=== PATIENT | female | born 1960 | race African-American/Black ===

== ENCOUNTER 2024-09-07 00:05 | Emergency (ER) | payer MEDICAID, OTHER ==
[~2024-09-07] VITALS: Ht 167.6 cm; Wt 66.0 kg
[2024-09-07 00:17] VITALS: TEMP 37; O2SAT 99
[2024-09-07] MEDS: KETOROLAC 15MG/ML VIAL IM ONE (02:00)
[2024-09-07 05:15] LABS: BASOPHILS % 0.8 % (0.0-2.0); EOSINOPHILS % 2.3 % (0.0-5.0); HEMATOCRIT. 38.5 % (36.0-48.0); HEMOGLOBIN. 12.8 g/dL (12.0-16.0); MEAN CORPUSCULAR HGB CONC 33.1 g/dL (31.0-37.0); MEAN CORPUSCULAR VOLUME 99.6 fL (81.0-99.0); MEAN PLATELET VOLUME 8.4 fl (7.4-10.4); MONOCYTES % 14.9 % (2.0-8.0); PLATELET 213 x1000/uL (130-400); RED BLOOD CELL COUNT 3.87 mill/uL (4.2-5.4); RED CELL DISTRIBUTION WIDTH 13.9 % (11.6-14.6); WHITE BLOOD COUNT 7.4 x1000/uL (4.5-11.0)
[2024-09-07 05:29] LABS: POTASSIUM 4.1 mEq/L (3.5-5.1)
[2024-09-07 05:30] LABS: CALCIUM 8.8 mg/dL (8.7-10.4)
[2024-09-07 05:35] LABS: CREATININE 1.2 mg/dL (0.6-1.0)
[2024-09-07 06:32] LABS: INR 0.9; PROTHROMBIN TIME 10.1 sec (9.6-11.0)
[2024-09-07] MEDS: HYDROCODONE/ACETAMINOPHEN 5/325MG TABLET PO ONE (07:59)
[2024-09-07 08:00] VITALS: BP 126/85; PULSE 75; RESP 12; O2SAT 97
[2024-09-07 09:21] LABS: ERYTHROCYTE SEDIMENTATION RATE 14 mm/hr (0-30)
== END 2024-09-07 08:38 | disposition short-term general hospital (02) ==
LOC: ER 00:15 → EDBEDREQTM 06:29 → EDBEDREQ 06:29 → CANBEDREQ 08:11 → ER 08:38
DX: S09.90XA Unspecified injury of head, initial encounter (principal); M25.562 Pain in left knee; I10 Essential (primary) hypertension; J44.9 Chronic obstructive pulmonary disease, unspecified; Z88.0 Allergy status to penicillin; Z88.6 Allergy status to analgesic agent; W19.XXXA Unspecified fall, initial encounter; Y93.89 Activity, other specified; Y92.89 Other specified places as the place of occurrence of the external cause; Y99.8 Other external cause status
CPT/HCPCS: 99285; 70450; 80048; 85025; 85610; 85651; 36415; 73562; 96372; J1885

== ENCOUNTER 2025-05-02 18:49 | Inpatient (IN) | payer MEDICAID ==
[~2025-05-02] VITALS: Ht 149.9 cm; Wt 46.7 kg
[~2025-05-02 18:49] MED LIST: ALBU18HF2 IH; AZIT250T MT; COR3 PO; FAMO20TA8 PO; IBUP-1455 PO
[2025-05-02] MEDS ORDERED: ONDANSETRON HCL 4MG/2ML INJ IV ONE (19:00)
[2025-05-02] MEDS ORDERED: HALOPERIDOL LACTATE 5MG/ML VIAL IM ONE (19:00)
[2025-05-02 19:39] LABS: BG DEOXYHEMOGLOBIN 58.2 % (0.0-5.0)
[2025-05-02 19:50] LABS: BASOPHILS % 0.5 % (0.0-2.0); EOSINOPHILS % 2.5 % (0.0-5.0); HEMATOCRIT. 49.3 % (36.0-48.0); HEMOGLOBIN. 16.0 g/dL (12.0-16.0); LYMPHOCYTES % 39.1 % (20.0-50.0); MEAN PLATELET VOLUME 9.1 fl (7.4-10.4); MONOCYTES % 9.7 % (2.0-8.0); NEUTROPHILS % 48.2 % (40.0-76.0); PLATELET 227 x1000/uL (130-400); RED BLOOD CELL COUNT 4.78 mill/uL (4.2-5.4); RED CELL DISTRIBUTION WIDTH 14.2 % (11.6-14.6)
[2025-05-02] MEDS: SODIUM CHLORIDE 0.9% 1,000 ML IV ONE (19:55)
[2025-05-02 20:05] LABS: CREATININE 1.0 mg/dL (0.6-1.0); UREA NITROGEN BLOOD 13 mg/dL (9-23)
[2025-05-02 20:06] LABS: TROPONIN I HIGH SENSITIVITY 28 ng/L (3.0-34)
[2025-05-02 20:07] LABS: ASPARTATE AMINOTRANSFERASE 122 IU/L (<34); BILIRUBIN DIRECT 0.1 mg/dL (<=3.0)
[2025-05-02 20:08] LABS: BILIRUBIN TOTAL 0.5 mg/dL (0.1-1.0); PROTEIN TOTAL 6.9 g/dL (6.0-8.3)
[2025-05-02 20:09] LABS: HCG SCREEN NEGATIVE
[2025-05-02] MEDS: ACETAMINOPHEN 325MG TABLET PO ONE (20:26)
[2025-05-02] MEDS ORDERED: ACETAMINOPHEN 325MG TABLET PO PRN (22:30)
[2025-05-02] MEDS ORDERED: IPRATROPIUM/ALBUTEROL 0.5-3(2.5)MG/3ML NEB HHN PRN (22:30)
[2025-05-02] MEDS ORDERED: CLONIDINE 0.1MG TABLET PO PRN (22:30)
[2025-05-02] MEDS ORDERED: DOCUSATE SODIUM 100MG CAPSULE PO PRN (22:30)
[2025-05-02] MEDS ORDERED: ONDANSETRON HCL 4MG/2ML INJ IV PRN (22:30)
[2025-05-02 23:00] VITALS: BP 121/80; PULSE 94; RESP 18; TEMP 36.418
[2025-05-03] VITALS: BP 121/80; PULSE 86; RESP 18; TEMP 36.4; O2SAT 95
[2025-05-03 04:00] VITALS: BP 136/84; PULSE 71; RESP 18; TEMP 36.3; O2SAT 95
[2025-05-03] MEDS: ACETAMINOPHEN 325MG TABLET PO PRN (04:40)
[2025-05-03 08:00] VITALS: BP 158/93; PULSE 75; RESP 17; TEMP 36.6; O2SAT 96
[2025-05-03] MEDS: PANTOPRAZOLE SODIUM 40 MG/VIAL IV SCH (09:19)
[2025-05-03 09:44] LABS: BASOPHILS % 0.7 % (0.0-2.0); EOSINOPHILS % 5.3 % (0.0-5.0); HEMATOCRIT. 43.2 % (36.0-48.0); HEMOGLOBIN. 14.2 g/dL (12.0-16.0); LYMPHOCYTES % 36.8 % (20.0-50.0); MEAN PLATELET VOLUME 9.2 fl (7.4-10.4); MONOCYTES % 9.4 % (2.0-8.0); NEUTROPHILS % 47.8 % (40.0-76.0); PLATELET 204 x1000/uL (130-400); RED BLOOD CELL COUNT 4.26 mill/uL (4.2-5.4); RED CELL DISTRIBUTION WIDTH 13.5 % (11.6-14.6)
[2025-05-03] MEDS: ENOXAPARIN 40MG/0.4ML SYR SUBCUT SCH (09:45)
[2025-05-03 09:58] LABS: TROPONIN I HIGH SENSITIVITY 41 ng/L (3.0-34)
[2025-05-03 10:09] LABS: CREATININE 1.0 mg/dL (0.6-1.0); UREA NITROGEN BLOOD 24 mg/dL (9-23)
[2025-05-03 10:10] LABS: CREATINE KINASE MB FRACTION 2.0 ng/mL (0.5-3.6)
[2025-05-03] MEDS ORDERED: MORPHINE SULFATE 2 MG/ML INJ (NOT FOR IM USE) IV PRN (10:15)
[2025-05-03] MEDS: MORPHINE SULFATE 4 MG/ML INJ (FOR IV/IM USE) IV PRN (11:44)
[2025-05-03 11:59] LABS: HEPATITIS C AB NON REACTIVE (Neg) (Negative)
[2025-05-03 12:00] VITALS: BP 136/90; PULSE 77; RESP 16; TEMP 36.4; O2SAT 97
[2025-05-03] MEDS ORDERED: NALOXONE HCL 0.4MG/ML VIAL IV PRN (13:30)
[2025-05-03 16:00] VITALS: BP 148/97; PULSE 73; RESP 17; TEMP 36.4; O2SAT 96
[2025-05-03 17:16] LABS: *AMPHETAMINES SCREEN URINE NEGATIVE (NEGATIVE); *BARBITURATES SCREEN URINE NEGATIVE (NEGATIVE); *BENZODIAZEPINES SCREEN URINE NEGATIVE (NEGATIVE); *COCAINE SCREEN URINE PRESUMPTIVE POSITIVE (NEGATIVE); CANNABINOID URINE SCREEN NEGATIVE (NEGATIVE); ECSTASY MDMA SCREEN URINE NEGATIVE (NEGATIVE); METHADONE URINE SCREEN NEGATIVE (NEGATIVE); OPIATES URINE SCREEN PRESUMPTIVE POSITIVE (NEGATIVE); PHENCYCLIDINE URINE SCREEN NEGATIVE (NEGATIVE)
[2025-05-03 17:28] LABS: CLARITY URINE CLEAR (CLEAR); COLOR URINE YELLOW (YELLOW); GLUCOSE URINE NEGATIVE (NEGATIVE); KETONES URINE NEGATIVE (NEGATIVE); LEUKOCYTE ESTERASE URINE NEGATIVE (NEGATIVE); NITRITE URINE NEGATIVE (NEGATIVE); OCCULT BLOOD URINE NEGATIVE (NEGATIVE); PH URINE 5.5 (4.5-8.0); PROTEIN URINE NEGATIVE (NEGATIVE); SPECIFIC GRAVITY URINE 1.019 (1.005-1.030); UROBILINOGEN URINE 0.2 E.U./dL (0.2-1.0)
[2025-05-03] MEDS: AZITHROMYCIN 500MG/250ML 250 ML IV SCH (17:41)
[2025-05-03] MEDS: METHYLPREDNISOLONE SOD SUCC 40MG/ML (ACT-O-VIAL) IV SCH (17:42)
[2025-05-03] MEDS: AMLODIPINE 5MG TABLET PO SCH (17:52)
[2025-05-03 19:22] LABS: CREATINE KINASE MB FRACTION 2.2 ng/mL (0.5-3.6)
[2025-05-03 19:23] LABS: TROPONIN I HIGH SENSITIVITY 25 ng/L (3.0-34)
[2025-05-03 19:26] LABS: T4 FREE 0.97 ng/dL (0.89-1.76)
[2025-05-03 19:28] LABS: FOLIC ACID (FOLATE) SERUM 12.08 ng/mL (>5.38); VITAMIN B12 SERUM 505 pg/mL (211-911)
[2025-05-03 20:00] VITALS: BP 142/91; PULSE 66; RESP 19; TEMP 36.6; O2SAT 95
[2025-05-03] MEDS: GUAIFENESIN 600MG ER TABLET PO SCH (21:33)
[2025-05-04] VITALS (9 sets, daily range): BP systolic 97–139; BP diastolic 59–106; PULSE 56–83; RESP 17–20; TEMP 36.3–36.6; O2SAT 88–99
[2025-05-04] MEDS: IPRATROPIUM/ALBUTEROL 0.5-3(2.5)MG/3ML NEB HHN SCH (01:07)
[2025-05-04] MEDS: GUAIFENESIN 200MG 200 MG TABLET PO PRN (06:43)
[2025-05-04 06:55] LABS: CREATININE 0.8 mg/dL (0.6-1.0)
[2025-05-04 06:56] LABS: UREA NITROGEN BLOOD 19 mg/dL (9-23)
[2025-05-04 07:24] LABS: PLATELET 197 x1000/uL (130-400); RED BLOOD CELL COUNT 4.37 mill/uL (4.2-5.4); RED CELL DISTRIBUTION WIDTH 13.2 % (11.6-14.6)
[2025-05-04] MEDS: ENOXAPARIN 30MG/0.3ML SYR SUBCUT SCH (10:23)
[2025-05-04] MEDS: DIAZEPAM 2 MG TABLET PO PRN (13:10)
[2025-05-04] MEDS ORDERED: IODIXANOL 320MG/ML 100 ML BOTTLE IV ONE (13:37)
[2025-05-04] MEDS ORDERED: HEPARIN 1000 UNITS/ML 10ML ONE (13:37)
[2025-05-04] MEDS ORDERED: VERAPAMIL HCL 2.5 MG/1 ML 2ML VIAL IV ONE (13:37)
[2025-05-04] MEDS ORDERED: LIDOCAINE HCL 1% 20ML VIAL ONE (13:37)
[2025-05-04] MEDS ORDERED: FENTANYL CITRATE/PF 50MCG/ML 2ML VIAL ONE (13:42)
[2025-05-04] MEDS ORDERED: MIDAZOLAM HCL 2 MG/2 ML VIAL ONE (13:42)
[2025-05-04] MEDS: SODIUM CHLORIDE 0.45% 1,000 ML IV SCH (16:56)
[2025-05-05] VITALS (9 sets, daily range): BP systolic 110–128; BP diastolic 68–80; PULSE 59–80; RESP 17–19; TEMP 36–36.6; O2SAT 95–98
[2025-05-05 06:33] LABS: CREATININE 1.0 mg/dL (0.6-1.0)
[2025-05-05 06:34] LABS: UREA NITROGEN BLOOD 21 mg/dL (9-23)
[2025-05-05 06:36] LABS: PHOSPHORUS 3.4 mg/dL (2.5-4.9)
[2025-05-05 06:51] LABS: BASOPHILS % 0.2 % (0.0-2.0); EOSINOPHILS % 0.2 % (0.0-5.0); HEMATOCRIT. 43.1 % (36.0-48.0); HEMOGLOBIN. 14.2 g/dL (12.0-16.0); LYMPHOCYTES % 16.1 % (20.0-50.0); MEAN PLATELET VOLUME 9.5 fl (7.4-10.4); MONOCYTES % 10.6 % (2.0-8.0); NEUTROPHILS % 72.9 % (40.0-76.0); PLATELET 201 x1000/uL (130-400); RED BLOOD CELL COUNT 4.26 mill/uL (4.2-5.4); RED CELL DISTRIBUTION WIDTH 13.4 % (11.6-14.6)
[2025-05-05] MEDS: BENZONATATE 100MG CAPSULE PO SCH (16:22)
[2025-05-05] MEDS: IPRATROPIUM/ALBUTEROL 0.5-3(2.5)MG/3ML NEB HHN PRN (21:10)
[2025-05-06] VITALS: BP 124/93; PULSE 79; RESP 18; TEMP 36.6; O2SAT 98
[2025-05-06 04:00] VITALS: BP 135/72; PULSE 61; RESP 18; TEMP 36.6; O2SAT 97
[2025-05-06 06:28] VITALS: PULSE 68; RESP 18
[2025-05-06 07:01] LABS: BASOPHILS % 0.4 % (0.0-2.0); EOSINOPHILS % 0.4 % (0.0-5.0); HEMATOCRIT. 41.9 % (36.0-48.0); HEMOGLOBIN. 13.6 g/dL (12.0-16.0); LYMPHOCYTES % 19.7 % (20.0-50.0); MEAN PLATELET VOLUME 9.5 fl (7.4-10.4); MONOCYTES % 9.4 % (2.0-8.0); NEUTROPHILS % 70.1 % (40.0-76.0); PLATELET 197 x1000/uL (130-400); RED BLOOD CELL COUNT 4.12 mill/uL (4.2-5.4); RED CELL DISTRIBUTION WIDTH 13.1 % (11.6-14.6)
[2025-05-06 07:33] LABS: CREATININE 0.8 mg/dL (0.6-1.0); UREA NITROGEN BLOOD 19 mg/dL (9-23)
[2025-05-06 07:35] LABS: PHOSPHORUS 3.5 mg/dL (2.5-4.9)
[2025-05-06 08:00] VITALS: BP 139/80; PULSE 66; RESP 18; TEMP 36.1; O2SAT 95
[2025-05-06 10:11] LABS: INFLUENZA TYPE A Presumptive Negative (Pres. Neg.); INFLUENZA TYPE B Presumptive Negative (Pres. Neg.); RESPIRATORY SYNCYTIAL VIRUS Not Detected (Not Detectd)
[2025-05-06] MEDS ORDERED: FAMO20TA8 PO (10:19)
[2025-05-06] MEDS ORDERED: DEXTL PO (10:19)
[2025-05-06 10:48] VITALS: BP 139/80; PULSE 66; RESP 18; TEMP 97
[2025-05-06 12:00] VITALS: RESP 18
[2025-05-06] MEDS: GUAIFENESIN 200MG/10ML SUGAR FREE UDC PO NR (12:23)
== END 2025-05-06 13:11 | disposition home or self-care (01) | DRG 191 ==
LOC: ER 18:49 → 6WST 20:30 → EDBEDREQTM 20:33 → EDBEDREQ 20:33 → ENRESERV 22:35
PROVIDERS: ADMIT Internal Medicine; ATTEND Internal Medicine
PROC: 4A023N7 Measurement of Cardiac Sampling and Pressure, Left Heart, Percutaneous Approach (ICD-10-PCS; principal; 2025-05-04)
PROC: B211YZZ Fluoroscopy of Multiple Coronary Arteries using Other Contrast (ICD-10-PCS; 2025-05-04)
PROC: B215YZZ Fluoroscopy of Left Heart using Other Contrast (ICD-10-PCS; 2025-05-04)
DX: I24.9 Acute ischemic heart disease, unspecified (principal); J96.00 Acute respiratory failure, unspecified whether with hypoxia or hypercapnia; J44.1 Chronic obstructive pulmonary disease with (acute) exacerbation; I10 Essential (primary) hypertension; F14.129 Cocaine abuse with intoxication, unspecified; F32.A Depression, unspecified; E16.2 Hypoglycemia, unspecified; F17.210 Nicotine dependence, cigarettes, uncomplicated; K21.9 Gastro-esophageal reflux disease without esophagitis; Z96.652 Presence of left artificial knee joint; R07.81 Pleurodynia; Z88.0 Allergy status to penicillin; Z88.6 Allergy status to analgesic agent; Z79.899 Other long term (current) drug therapy; Z90.49 Acquired absence of other specified parts of digestive tract
CPT/HCPCS: 36415; 71045; 80048; 80076; 80305; 81003; 82375; 82550; 82553; 82607; 82746; 82803; 82962; 83605; 83735; 83880; 84100; 84145; 84439; 84443; 84484; 84703; 85025; 85027; 85379; 86705; 87070; 87340; 87420; 87804; 93005; 93458; 94070; 94640; 94664; 96360; 97162; 97166; 99285; A4606; C1769; C1887; C1893; J0456; J1644; J1650; J2003; J2250; J2270; J2470; J2919; J3010; J3490; J7030; Q9967